=== PATIENT | male | born 1990 | race Two or more races ===

== ENCOUNTER 2025-02-14 11:34 | Emergency (ER) | payer OTHER, SELFPAY ==
--- NOTE | ~2025-02-14 | CT_ITS ---
CT abdomen pelvis w con Ordering provider: Dorothy Nathan MD History: 34 years Male with . LUQ pain, LLQ pain, penile pain; ? bloody stools . Comparison: None. Technique: CT abdomen and pelvis with IV and without oral contrast. Automated exposure control and it erative reconstruction technique were employed. The dose-length product was 255.32 mGy-cm. 100 mL Omn ipaque 350 was given IV. Findings: VISUALIZED LOWER CHEST: Dependent atelectatic changes. UPPER ABDOMINAL ORGANS: Liver: Normal. Focal area of fat infiltration seen around the ankle lobar fissure. Gallbladder: Normal. Spleen: Normal. Stomach/duodenum: Normal. Pancreas: Fat stranding is seen below the tail of the pancreas most likely from the left kidney. Clin ical evaluation for pancreatitis should be considered. Adrenals: Normal. Kidneys: Stone is seen in the left kidney upper pole measuring 4 mm. Left hydronephrotic changes seen with a stone in the left ureterovesical junction measuring 4 mm. PELVIC ORGANS: The bladder is underfilled. BOWEL AND MESENTERY: Colon: No evidence of diverticulitis.. Normal appendix. Small Bowel: Normal. No obstruction. Peritoneum/mesentery: No free air or free fluid. No mesenteric lymphadenopathy. RETROPERITONEUM: Normal aorta. No retroperitoneal lymphadenopathy. MUSCULOSKELETAL: Superficial soft tissues: The superficial soft tissues are normal. Bones: Normal spine. Small lucency with sclerotic edge seen in the left iliac bone. Follow-up advised . IMPRESSION: 1. Stone in the left lower ureter with left mild hydronephrotic changes. Stone in the left kidney up per pole. Reviewed, dictated and finalized at location A. IMPRESSION: 1. Stone in the left lower ureter with left mild hydronephrotic changes. Stone in the left kidney upper pole.
[2025-02-14 11:36] VITALS: BP 119/79; PULSE 83; RESP 18; TEMP 36.4; O2SAT 100
[2025-02-14 12:08] VITALS: BP 136/70; PULSE 98; RESP 20; O2SAT 98
[2025-02-14 12:52] LABS: Basophils Percent Auto 0.4 % (0.2-1.2); Eosinophils Percent Auto 0.3 % (0-4.4); Hematocrit 48.8 % (42.0-52.0); Hemoglobin 16.1 g/dL (14.0-18.0); Immature Granulocyte Absolute 0.07 K/mm3 (0.00-0.031); Immature Granulocyte Percent A 0.7 % (0-0.5); Immature Platelet Fraction Pct 6.5 % (0.9-11.2); Lymphocytes Absolute Auto 1.06 K/mm3 (0.9-3.2); Lymphocytes Percent Auto 10.5 % (18.3-44.2); Mean Corpuscular Hemoglobin 29.9 pg (26-34); Mean Corpuscular Volume 90.7 fl (80-100); Mean Platelet Volume 10.8 fl (7.4-10.4); Monocytes Absolute Auto 0.7 K/mm3 (0.1-0.6); Monocytes Percent Auto 7.2 % (2.6-8.5); Neutrophils Absolute Auto 8.2 K/mm3 (1.3-6.7); Neutrophils Percent Auto 80.9 % (45.5-73.1); Platelet Count Result 175 k/mm3 (150-375); Red Blood Count 5.38 M/mm3 (4.6-6.20); Red Cell Distribution Width 12.2 % (11.5-14.5); White Blood Count 10.1 K/mm3 (4.5-10.0)
[2025-02-14 12:55] LABS: Add Urine Microscopic? YES; Appearance Urine Cloudy (Clear); Bacteria Urine None Seen /hpf; Bilirubin Urine Negative (Negative); Blood Urine 3+ (Negative); Color Urine Yellow (Yellow); Glucose Urine UA Negative (Negative); Ketones Urine Negative (Negative); Leukocyte Esterase Ur Negative LEU/UL (Negative); Nitrate Urine Negative (Negative); Protein Urine Trace mg/dL (Negative); RBC Urine 51-100 /hpf (0-2); Specific Grav Ur 1.026 (1.001-1.035); Squamous Epithelial Cell Urine None Seen /hpf (Few); Urobilinogen Urine 0.2 mg/dL (<2.0); WBC Urine 0-5 /hpf (0-3); pH Urine 5.5 (5.0-9.0)
--- NOTE | 2025-02-14 13:05 | ED.ABDPAIN ---
HPI - Abdominal Pain General Chief Complaint: Abdominal Pain Stated Complaint: abd pain Time Seen by Provider: 02/14/25 12:50 Source: patient and family () Mode of arrival: ambulatory Limitations: no limitations History of Present Illness HPI narrative: Patient presents with report of abdominal pain. Is initially reported as left lower abdominal pain although patient points to left upper quadrant more so than left lower quadrant. He also reports penile pain, particularly at the meatus. This has never happened before. He denies any penile discharge. He has never had a colonoscopy. His last bowel movement was this morning. He reports that his stone was loose but this is not uncommon as he has lactose intolerance. He also notes that he occasionally has bloody stools though he reports this is chronic. He had nausea and 1 episode of emesis this morning. He initially denies any blood in the emesis although he does state that it was red. thought perhaps he had drank some Code Red but he denied that. He took Tylenol and ibuprofen at approximately 11:00 a.m.. He has had decreased urine output. He denies any hematuria or dysuria but has been having urinary urgency and frequency. No fevers or chills. He has had decreased appetite. No history of kidney stones. He does not have a primary care physician. Recently laid off work. Related Data Allergies Allergy/AdvReac Type Severity Reaction Status Date / Time No Known Allergies Allergy Verified 02/14/25 11:40 [facility]LY [facility] Social History Social History Currently Unemployed: YES Living arrangements: with family Additional living arrangements comments: Occupation/Education: unemployed Additional occupation/education comments: Laid off in January 2025 Exam Narrative: GENERAL: Well-appearing, well-nourished, in moderate acute distress. Standing at the side of bed bent over. HEAD: Normocephalic, atraumatic. EYES: Non injected, non icteric ENT: Nares clear, no rhinorrhea or epistaxis. Gross auditory acuity intact. NECK: Supple. No meningismus. CHEST: Speaking in full sentences. No respiratory distress. HEART: Regular rate and rhythm. . ABDOMEN: Soft, nondistended. No rigidity or guarding. Not peritoneal. EXTREMITIES: Normal range of motion. No lower extremity edema. SKIN: Warm, dry, no rash. NEURO: No focal deficits. Alert and oriented. Answering questions. Following commands. Normal speech without aphasia or dysarthria. /BACK: Exam performed with present. Normal uncircumcized external male genitalia. The foreskin retractable. No blood at the urethral meatus. No tenderness to palpation of the penis. No scrotal edema. No tenderness to palpation or relief of pain with examination of scrotum/testicles. Testicles without horizontal lie. No CVA tenderness bilaterally. PSYCH: Congruent mood and affect. Course Vital Signs Vital signs: Vital Signs Temperature 97.6 F 02/14/25 11:36 Pulse Rate 83 02/14/25 11:36 Respiratory Rate 18 02/14/25 11:36 Blood Pressure 119/79 02/14/25 11:36 Pulse Oximetry 100 02/14/25 11:36 Oxygen Delivery Room Air 02/14/25 11:36 Temperature 97.6 F 02/14/25 11:36 Pulse Rate 69 02/14/25 16:32 Respiratory Rate 15 02/14/25 16:32 Blood Pressure 117/74 02/14/25 16:32 Pulse Oximetry 95 02/14/25 16:32 Oxygen Delivery Room Air 02/14/25 11:36 MDM - Abdominal Pain MDM Narrative Medical decision making narrative: Patient presents with report of abdominal pain particularly left-sided. Was initially reported as left lower pain although he describes left upper quadrant more so than left lower quadrant but he is also having penile pain. In the emergency department they are afebrile with vital signs within normal limits. He has elevated AST and ALT in the 100s. No prior for comparison. Lipase normal. Urinalysis with hematuria but otherwise does not appear infected. Within the body of the CT read, the following is noted: Pancreas: Fat stranding is seen below the tail of the pancreas most likely from the left kidney. Clinical evaluation for pancreatitis should be considered. Kidneys: Stone is seen in the left kidney upper pole measuring 4 mm. Left hydronephrotic changes seen with a stone in the left ureterovesical junction measuring 4 mm. Patient is having pain in upper abdomen although not at the epigastrium and not radiating posteriorly and Lipase is normal. No urinary retention on bladder scan per nurse. Urinalysis with hematuria but otherwise does not appear infected. Patient given a few rounds of analgesia including ketorolac as part of expulsion therapy which also included tamsulosin. Patient is reassessed and improving. We discussed the natural course of kidney stone including the size and location and his candidacy for outpatient conservative expulsion therapy. Strict emergency department return precautions are given and he verifies understanding. He was recently laid off and currently searching for jobs and does note that because of this he has to undergo urine drug screen testing. We discussed that he had received opiates to treat/manage his the intensity of the pain while in the emergency department and that this would be written his discharge instructions. Patient advised to strain urine and follow-up with Urology, contact information provided. Patient discharged home with prescriptions for Tylenol as well as expulsion therapy triad of Zofran, Flomax, and Toradol. All questions answered. Differential Diagnosis Differential diagnosis: Likely abdominal pain, calculus of kidney, constipation, diverticulitis, gastroenteritis, pancreatitis and other (Hematochezia, Meckel's diverticulum. Dysplasia; colitis/enteritis; Salmonella; infectious diarrhea; IBD; STI; testicular torsion; gastritis; GI bleed ) Lab Data Attestation: I reviewed the patient's lab results. 02/14/25 12:44 02/14/25 12:44 Labs: Lab Results 02/14/25 Range/Units 12:44 WBC 10.1 H (4.5-10.0) K/mm3 RBC 5.38 (4.6-6.20) M/mm3 Hgb 16.1 (14.0-18.0) g/dL Hct 48.8 (42.0-52.0) % MCV 90.7 (80-100) fl MCH 29.9 (26-34) pg MCHC 33.0 (32-36) g/dl RDW 12.2 (11.5-14.5) % Plt Count 175 (150-375) k/mm3 MPV 10.8 H (7.4-10.4) fl Immature Gran % (Auto) 0.7 H (0-0.5) % Neut % (Auto) 80.9 H (45.5-73.1) % Lymph % (Auto) 10.5 L (18.3-44.2) % [place] % (Auto) 7.2 (2.6-8.5) % Eos % (Auto) 0.3 (0-4.4) % Baso % (Auto) 0.4 (0.2-1.2) % Lymph # (Auto) 1.06 (0.9-3.2) K/mm3 [place] # (Auto) 0.7 H (0.1-0.6) K/mm3 Eos # (Auto) 0.0 (0-0.3) K/mm3 Baso # (Auto) 0.0 (0.0-0.1) K/mm3 Abs Immat Gran (auto) 0.07 H (0.00-0.031) K/mm3 Absolute Neuts (auto) 8.2 H (1.3-6.7) K/mm3 Absolute Nucleated RBC 0.000 (0.0-0.012) K/mm3 Nucleated RBC % 0.0 (0.0-0.2) % % Immature Plt Fraction 6.5 (0.9-11.2) % PT 12.7 (11.1-14.7) Seconds INR 0.9 APTT 21.4 L (22.3-36.8) Seconds Sodium 137 (137-145) mmol/L Potassium 4.7 (3.4-5.0) mmol/L Chloride 105 (98-107) mmol/L Carbon Dioxide 23 (22-30) mmol/L Anion Gap 9 (4-12) mmol/L BUN 15 (9-20) mg/dL Creatinine 0.95 (0.7-1.3) mg/dL Estim Creat Clear Calc 88 ml/min Estimated GFR > 60 (59 - ) Glucose 106 (65-110) mg/dL Calcium 9.2 (8.4-10.2) mg/dL Total Bilirubin 0.7 (0.2-1.3) mg/dL AST 152 H (17-59) U/L ALT 191 H (6-50) U/L Alkaline Phosphatase 78 (38-126) U/L Total Protein 7.3 (6.3-8.2) g/dL Albumin 4.5 (3.5-5.1) g/dL Lipase 40 (23-300) U/L Urine Color Yellow (Yellow) Urine Appearance Cloudy H (Clear) Urine pH 5.5 (5.0-9.0) Ur Specific [place] 1.026 (1.001-1.035) Urine Protein Trace (Negative) mg/dL Urine Glucose (UA) Negative (Negative) mg/dL Urine Ketones Negative (Negative) mg/dL Ur Blood (Man) 3+ H (Negative) Urine Nitrate Negative (Negative) Urine Bilirubin Negative (Negative) Urine Urobilinogen 0.2 (<2.0) mg/dL Leukocyte Esterase Rfl Negative (Negative) BRAN/UL Urine RBC 51-100 H (0-2) /hpf Urine WBC 0-5 (0-3) /hpf Ur Squamous Epith Cells None seen (Few) /hpf Urine Bacteria None seen /hpf Urine Casts 3-5 Acetaminophen < 10 L (10-30) ug/mL C. trachomatis (PCR) Not detected (NOT DETECTE) N. gonorrhoeae (PCR) Not detected (NOT DETECTE) T. vaginalis (PCR) Not detected (NOT DETECTE) Imaging Data Radiologist's impression: ITS Impressions Abdomen/Pelvis CT 02/14/25 14:30 IMPRESSION: 1. Stone in the left lower ureter with left mild hydronephrotic changes. Stone in the left kidney upper pole. Discharge Plan Discharge Clinical Impression: Transaminitis, Left ureteral stone, Calculus of ureterovesical junction (UVJ), Hematuria Patient Disposition: Home Condition: Stable Instructions: Antibiotic Form, Hematuria (ED), How to Strain Your Urine (ED), Ureteral Stones (ED), Transaminitis (ED) Additional Instructions: As we discussed, you have a small stone that should pass on its own with the help of the combination of medications we discussed for expulsion therapy. You can strain your urine and follow-up with urology (listed below). Because you do not have a primary care physician the name of the doctors listed below. Do not hesitate to return to the emergency department with any new, worsening, or unmanaged symptoms such as intractable pain, intractable nausea/vomiting, fever greater than 100.4? F, etc. The oral disintegrating tablets of Zofran can help with nausea or vomiting. Of note for future employers: patient received doses of opiate/narcotic medication while in the ED 02/14/25 due to medical need. Patient Language: Hungarian Prescriptions: New tamsulosin [Flomax] 0.4 mg capsule 0.4 mg PO HS Qty: 14 0RF Rx Instructions: start 02/15 (received first dose in ED 02/14) ondansetron 4 mg tablet,disintegrating 4 mg PO Q8H PRN (Reason: nausea and vomiting) Qty: 7 0RF acetaminophen 500 mg capsule 1,000 mg PO Q6H PRN (Reason: pain) Qty: 30 0RF ketorolac 10 mg tablet 10 mg PO Q8H PRN (Reason: pain) 5 Days Qty: 14 0RF Rx Instructions: maximum total duration of 5 days from all oral, intranasal, or parenteral formulations; received 1st dose in the emergency department 02/14 Follow-up/Referrals: Matthew Collazo MD [Physician] - (urology) Omid Jones MD [Physician] - UNKNOWN,DOCTOR [Primary Care Provider] - Time of Disposition: 15:47
[2025-02-14 13:13] LABS: Alanine Aminotransferase 191 U/L (6-50); Albumin Level 4.5 g/dL (3.5-5.1); Alkaline Phosphatase 78 U/L (38-126); Anion Gap 9 mmol/L (4-12); Aspartate Amino Transferase 152 U/L (17-59); Bilirubin,Total 0.7 mg/dL (0.2-1.3); Blood Urea Nitrogen 15 mg/dL (9-20); Calcium 9.2 mg/dL (8.4-10.2); Carbon Dioxide 23 mmol/L (22-30); Chloride 105 mmol/L (98-107); Estimated CRCL calculation 88 ml/min; Estimated Glomerular Filt Rate > 60; Glucose 106 mg/dL (65-110); Lipase 40 U/L (23-300); Potassium 4.7 mmol/L (3.4-5.0); Sodium 137 mmol/L (137-145); Total Protein 7.3 g/dL (6.3-8.2)
[2025-02-14 14:00] LABS: Acetaminophen < 10 ug/mL (10-30)
[2025-02-14] MEDS: HYDROmorphone HCL INJ (*CRX) 2 MG/ML VIAL 0.5 MG IV PUSH ×2 (14:03→15:56)
[2025-02-14 14:05] VITALS: BP 128/77; PULSE 73; RESP 15; O2SAT 97
[2025-02-14 14:06] VITALS: BP 128/77; PULSE 83; RESP 18; O2SAT 100
[2025-02-14 14:18] LABS: INR 0.9; Partial Thromboplastin Time 21.4 Seconds (22.3-36.8); Prothrombin Time 12.7 Seconds (11.1-14.7)
[2025-02-14] MEDS: HYDROmorphone HCL INJ (*CRX) 2 MG/ML VIAL 1 MG IV PUSH (14:50)
[2025-02-14 14:58] LABS: Trichomonas Vag PCR NOT DETECTED (NOT DETECTE)
[2025-02-14] MEDS: KETOROLAC 15 MG/ML VIAL (*BKC) IV PUSH (15:05)
[2025-02-14] MEDS: TAMSULOSIN HCL 0.4 MG CAPSULE PO (15:05)
[2025-02-14] MEDS: ONDANSETRON INJ 4 MG/2 ML VIAL IV PUSH (15:05)
[2025-02-14 15:22] LABS: Chlamydia trachomatis NOT DETECTED (NOT DETECTE); Neisseria gonorrhoeae PCR NOT DETECTED (NOT DETECTE)
[2025-02-14 15:59] VITALS: BP 116/76; PULSE 71; RESP 16; O2SAT 96
[2025-02-14 16:32] VITALS: BP 117/74; PULSE 69; RESP 15; O2SAT 95
== END 2025-02-14 16:32 | disposition home or self-care (01) ==
PROVIDERS: Emergency Provider Student in an Organized Health Care Education/Training Program
DX: N20.1 Calculus of ureter (principal); E73.9 Lactose intolerance, unspecified; R31.9 Hematuria, unspecified; R74.01 Elevation of levels of liver transaminase levels
CPT/HCPCS: 36415; 74177; 80053; 80143; 81001; 83690; 85025; 85055; 85610; 85730; 87491; 87591; 87661; 96374; 96375; 96376; 99284; A9270; J1171; J1885; J2405; Q9967